=== PATIENT | female | born 1985 | race Caucasian/White ===

== ENCOUNTER 2017-09-14 05:28 | Emergency (ER) | payer SELFPAY ==
--- NOTE | 2017-09-14 05:37 | PDOC ---
History of Present Illness - General Chief Complaint: Pain, Acute Stated Complaint: ABDOMINAL PAIN; pt states that she has LLQ pain. Her menses is late. SHe started a new OCP History Source: Patient Exam Limitations: No Limitations - History of Present Illness Timing/Duration: 1-3 hours Severity: mild (Pt states that she has had this type on LLQ pain when she has a viral gastroenteritis. However pt has no N/V/D) Past History - Travel Traveled outside of the country in the last 30 days: No Close contact w/someone who was outside of country & ill: No - Past Medical History Allergies/Adverse Reactions: Allergies Allergy/AdvReac Type Severity Reaction Status Date / Time No Known Allergies Allergy Verified 09/14/17 05:30 Home Medications: Ambulatory Orders NK [No Known Home Medication] 09/14/17 Asthma: No Cancer: No Cardiac Disorders: No Diabetes: No HTN: No Seizures: No Thyroid Disease: No - Suicide/Smoking/Psychosocial Hx Smoking History: Never smoked Have you smoked in the past 12 months: No Hx Alcohol Use: No Drug/Substance Use Hx: No Hx Substance Use Treatment: No Review of Systems - Review of Systems Able to Perform ROS?: No Is the patient limited Beninese proficient: No Constitutional: No: Symptoms Reported, See HPI, Chills, Diaphoresis, Fever, Loss of Appetite, Malaise, Night Sweats, Weakness, Weight Stable, Unintentional Wgt. Loss, Unexplained wgt Loss, Other HEENTM: No: Symptoms Reported, See HPI, Eye Pain, Blurred Vision, Tearing, Recent change in vision, Double Vision, Cataracts, Ear Pain, Ocular Prothesis, Ear Discharge, Nose Pain, Nose Congestion, Tinnitus, Nose Bleeding, Hearing Loss , Throat Pain, Throat Swelling, Mouth Pain, Dental Problems, Difficulty Swallowing, Mouth Swelling, Other Respiratory: No: Symptoms reported, See HPI, Cough, Orthopnea, Shortness of Breath, SOB with Exertion, SOB at Rest, Stridor, Wheezing, Productive cough, Hemoptysis, Other Cardiac (ROS): No: Symptoms Reported, See HPI, Chest Pain, Edema, Irregular Heart Rate, Lightheadedness, Palpitations, Syncope, Chest Tightness, Other ABD/GI: Yes: Abdominal cramping. No: Symptoms Reported, See HPI, Abdominal Distended, Abd. Pain w/ defecation, Blood Streaked Bowels, Constipated, Diarrhea , Difficulty Swallowing, Nausea, Poor Appetite, Poor Fluid Intake, Rectal Bleeding, Vomiting, Indigestion, Tarry Stools, Other Musculoskeletal: No: Symptoms Reported, See HPI, Back Pain, Gout, Joint Pain, Joint Swelling, Muscle Pain, Muscle Weakness, Neck Pain, Joint Stiffness, Other Neurological: No: Symptoms reported, See HPI, Headache, Numbness, Paresthesia, Pre-Existing Deficit, Seizure, Tingling, Tremors, Weakness, Unsteady Gait, Ataxia, Dizziness, Other *Physical Exam - Physical Exam General Appearance: Yes: Nourished, Appropriately Dressed. No: Apparent Distress, Disheveled, Mild Distress, Moderate Distress, Severe Distress, Alcohol on Breath, Intoxicated, Cachetic, Obese, Thin, Other HEENT: positive: EOMI, JHON, Normal ENT Inspection, Normal Voice, Symmetrical, TMs Normal, Pharynx Normal. negative: Pale Conjunctivae, Photophobia, Scleral Icterus (R), Scleral Icterus (L), Muffled/Hoarse voice, Pharyngeal Erythema, Tonsillar Exudate, Tonsillar Erythema, Nasal Congestion, Rhinorrhea, Sinus Tenderness, Orbits, Hearing Decreased, Hearing Grossly Normal, TM Bulging, TM Dull, TM Erythema, Lesions, Fontaine, Excessive drooling, Thrush, Other Neck: positive: Trachea midline, Supple. negative: Tender, Normal Thyroid, Rigid, Carotid bruit, Decreased range of motion, Stridor, Lymphadenopathy (R), Lymphadenopathy (L), Rigidity, Tender lateral, Tender midline, Thyromegaly, Other Respiratory/Chest: positive: Lungs Clear, Normal Breath Sounds. negative: Chest Tender, Respiratory Distress, Accessory Muscle Use, Labored Respiration, Rapid RR, Decreased Breath Sounds, Paradoxal Breathing, Crackles, Rales, Rhonchi , Stridor, Wheezing, Hyperresonant, Dullness, Plerual Rub, Other Cardiovascular: positive: Regular Rhythm, Regular Rate, S1, S2. negative: Edema , JVD, Murmur, Bradycardia, Tachycardia, Diastolic Murmur, Systolic Murmur, Gallop/S3, Gallop/S4, Irregularly Irregular, Irregular, Other Gastrointestinal/Abdominal: positive: Normal Bowel Sounds, Flat, Soft. negative : Tender, Organomegaly, Pulsatile Mass, Increased Bowel Sounds, Decreased BS, Protuberent, Distended, Guarding, Rebound, Tenderness, Hernia, Mass, Hepatomegaly, Spleenomegaly, Other Musculoskeletal: positive: Normal Inspection. negative: CVA Tenderness, CVA Tenderness (R), CVA Tenderness (L), Decreased Range of Motion, Muscle Spasm, Vertebral Tenderness, Other Extremity: positive: Normal Capillary Refill, Normal Inspection, Normal Range of Motion. negative: Tender, Pelvis Stable, Coldness, Cyanosis, Delayed Capillary Refill, Pedal Edema, Swelling, Calf Tenderness, Erythema, Inflammation , Other Integumentary: positive: Normal Color, Dry, Warm. 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 negative: Abnormal Cranial NS, Respond to painful stimul, Responsive, EOM Palsy, Facial Droop, Numbness, Sensory Deficit, Finger to Nose, Confused, Disoriented, Depressed Affect, Babinski, Other ED Treatment Course - LABORATORY CBC & Chemistry Diagram: 09/14/17 06:00 09/14/17 06:00 Medical Decision Making - Medical Decision Making 09/14/17 06:26 Pt comes with LLQ pain and a late menstrual period. She may be or she may have a left ovarian cyst. She recently started a new OCP and she has been vaginal spotting all month. Pt appears comfortable, however she states that she is in pain. No guarding and no rebound, no N/V/D She will have labs and she will get pain meds and she will be treated with percocet. AM Sonogram when the dept opens. 09/14/17 06:52 CBC normal; chem pending; UA initially normal; leukocytes pending. Pt will be signed out to the day doctor. *DC/Admit/Observation/Transfer Diagnosis at time of Disposition: Ovulation pain - Discharge Dispostion Disposition: HOME Condition at time of disposition: Stable - Referrals - Patient Instructions Additional Instructions: Pain is likely due to ovulation. It should slowly subside within several days. Anti-inflammatories taken on a regular basis, such as Motrin 3 times daily or Aleve twice daily, should relieve the pain. If pain worsens, return to ER for further evaluation. 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 - Post Discharge Activity
[2017-09-14 05:44] VITALS: BP 148/90; PULSE 67; TEMP 98.5; BMI 29.9
[2017-09-14 06:34] LABS: BASO % 0.9 % (0-2.0); EOS % 5.1 % (0-4.5); HEMOGLOBIN 12.2 GM/dL (10.7-15.3); LYMPH % 33.9 % (8-40); MCH 30.7 pg (25.7-33.7); MCHC 32.9 g/dl (32.0-36.0); MEAN CELL VOLUME 93.2 fl (80-96); MEAN PLT VOLUME 9.4 fl (7.5-11.1); MONO % 6.8 % (3.8-10.2); NEUT % 53.3 % (42.8-82.8); PLATELET COUNT 334 K/MM3 (134-434); RBC 3.97 M/mm3 (3.60-5.2); RDW 13.5 % (11.6-15.6)
[2017-09-14 06:37] LABS: URINE APPEARANCE CLOUDY; URINE BILIRUBIN NEGATIVE (NEGATIVE); URINE BLOOD NEGATIVE (NEGATIVE); URINE COLOR YELLOW; URINE GLUCOSE (UA) NEGATIVE (NEGATIVE); URINE KETONE NEGATIVE (NEGATIVE); URINE NITRITE NEGATIVE (NEGATIVE); URINE PROTEIN NEGATIVE (NEGATIVE)
[2017-09-14 07:22] LABS: ALBUMIN 3.5 g/dl (3.4-5.0); ANION GAP 6 (8-16); BILIRUBIN,TOTAL 0.2 mg/dL (0.2-1.0); BLOOD UREA NITROGEN 10 mg/dL (7-18); CALCIUM 8.2 mg/dL (8.5-10.1); CHLORIDE 104 mmol/L (98-107); CO2 29 mmol/L (21-32); CREATININE 0.7 mg/dL (0.55-1.02); GLUCOSE,RANDOM 93 mg/dL (74-106); POTASSIUM 4.2 mmol/L (3.5-5.1); SGOT/AST 8 U/L (15-37); SGPT/ALT 22 U/L (12-78); SODIUM 139 mmol/L (136-145); TOT PROT 6.9 g/dl (6.4-8.2)
[2017-09-14 07:23] LABS: ALK PHOS 47 U/L (45-117)
--- NOTE | 2017-09-14 07:53 | PDOC ---
*Physical Exam - Vital Signs Last Vital Signs Temp Pulse Resp BP Pulse Ox 98.5 F 67 18 148/90 99 09/14/17 05:30 09/14/17 05:30 09/14/17 05:30 09/14/17 05:30 09/14/17 05:30 09/14/17 09:11 Ultrasound is negative. Most likely diagnosis is ovulation pain. Anti- inflammatories and [employer] referral. Return to ER if pain worsens or other symptoms develop. Fully ambulatory, pain much improved, upon discharge, to follow-up as recommended - Physical Exam Comments: 09/14/17 07:52 Patient's pain is much improved. Abdomen is nondistended, bowel sounds are normal. Soft without mass or organomegaly. Mild tenderness to deep palpation in the left pelvis, no guarding or rebound. test negative. CBC and chemistries without significant abnormalities, specifically, no white count. Impression: Patient recently started oral contraceptives, her. She has had spotting throughout her first cycle with no distinct masses. This is probably pain resulting from ovulation. Ultrasound will be performed. Maintain anti- inflammatories. [employer] follow-up. ED Treatment Course - LABORATORY CBC & Chemistry Diagram: 09/14/17 06:00 09/14/17 06:00 - ADDITIONAL ORDERS Additional order review: Laboratory Results 09/14/17 09/14/17 09/14/17 07:04 06:01 06:01 Sodium Potassium Chloride Carbon Dioxide Anion Gap BUN Creatinine Creat Clearance w eGFR Random Glucose Calcium Total Bilirubin AST ALT Alkaline Phosphatase Total Protein Albumin Beta HCG, Quant < 1.0 Urine Color Yellow Urine Appearance Cloudy Urine pH 5.0 Ur Specific Mission 1.026 Urine Protein Negative Urine Glucose (UA) Negative Urine Ketones Negative Urine Blood Negative Urine Nitrite Negative Urine Bilirubin Negative Urine Urobilinogen 2.0 H Urine HCG, Qual Negative 09/14/17 06:00 Sodium 139 Potassium 4.2 Chloride 104 Carbon Dioxide 29 Anion Gap 6 L BUN 10 Creatinine 0.7 Creat Clearance w eGFR > 60 Random Glucose 93 Calcium 8.2 L Total Bilirubin 0.2 AST 8 L ALT 22 Alkaline Phosphatase 47 Total Protein 6.9 Albumin 3.5 Beta HCG, Quant Urine Color Urine Appearance Urine pH Ur Specific Mission Urine Protein Urine Glucose (UA) Urine Ketones Urine Blood Urine Nitrite Urine Bilirubin Urine Urobilinogen Urine HCG, Qual 09/14/17 06:00 RBC 3.97 MCV 93.2 MCHC 32.9 RDW 13.5 MPV 9.4 Neutrophils % 53.3 Lymphocytes % 33.9 D Monocytes % 6.8 Eosinophils % 5.1 H Basophils % 0.9 - RADIOLOGY Radiology Studies Ordered: Category Date Time Status PELVIC / BLADDER US [US] Stat Ultrasound 09/14/17 07:34 Ordered - Medications Given in the ED: ED Medications Discontinued Medications Generic Name Dose Route Start Last Admin Trade Name Freq PRN Reason Stop Dose Admin Oxycodone/Acetaminophen 2 combo 09/14/17 05:38 09/14/17 05:59 Percocet 5/325 - PO 09/14/17 05:39 2 combo ONCE ONE Administration *DC/Admit/Observation/Transfer Diagnosis at time of Disposition: Ovulation pain - Discharge Dispostion Disposition: HOME Condition at time of disposition: Stable Admit: No - Referrals - Patient Instructions Additional Instructions: Pain is likely due to ovulation. It should slowly subside within several days. Anti-inflammatories taken on a regular basis, such as Motrin 3 times daily or Aleve twice daily, should relieve the pain. If pain worsens, return to ER for further evaluation. Otherwise see your [employer] physician for further evaluation and treatment within 3 days. - Post Discharge Activity
== END 2017-09-14 09:34 | disposition home or self-care (01) ==
LOC: FER 05:28
DX: N94.0 Mittelschmerz (principal)
CPT/HCPCS: 36415; 76856-TC; 80053; 81003; 84702; 84703; 85025; 99282-25

== ENCOUNTER 2017-12-09 14:04 | Emergency (ER) | payer OTHER ==
[2017-12-09] MEDS ORDERED: IBUPROFEN 400 MG TABLET (FP) PO ONE ×2 (14:17→15:21)
[2017-12-09 14:18] VITALS: BP 115/69; PULSE 83; TEMP 98; BMI 29.9
--- NOTE | 2017-12-09 14:18 | PDOC ---
Rapid Medical Evaluation Chief Complaint: Injury Time Seen by Provider: 12/09/17 14:15 Medical Evaluation: Allergies Allergy/AdvReac Type Severity Reaction Status Date / Time No Known Allergies Allergy Verified 12/09/17 14:14 12/09/17 14:15 The patient presents with a chief complaint of: R ankle pain. Twisted it last night on uneven pavement in parking complex. Pain with walking I have performed a brief in-person evaluation of this patient; Pertinent physical exam findings: ambulatory, but with limp, in no respiratory distress. Swollen lateral Malleoulus, decreased rom. TTP lateral/medial maleolus I have ordered the following: R ankle x-ray The patient will proceed to the ED for further evaluation.
--- NOTE | 2017-12-09 14:59 | PDOC ---
History of Present Illness - General Chief Complaint: Injury Stated Complaint: RT ANKLE PAIN Time Seen by Provider: 12/09/17 14:15 History Source: Patient Exam Limitations: No Limitations - History of Present Illness Initial Comments: 12/09/17 14:55 CHIEF COMPLAINT: Inversion injury right ankle HISTORY OF PRESENT ILLNESS: She is a 32-year-old female, denies any significant medical history currently on no medication presents with right ankle inversion injury. Reports walking on the pavement and her ankle gave out. There is swelling noted to right lateral ankle with no bruising. No deformity. Patient is ambulating guarding ankle. Occurred: reports: this morning Severity: Yes: moderate Lower Extremity Pain Location: right: ankle Method of Injury: Yes: twisted Modifying Factors: improves with: cold therapy Lower Ext. Injury Location - Specific Injury Location Ankle: right pain, right swelling Extremity Pain Location - Extremity Pain Location Extremity Pain Locations: right: ankle Past History - Past Medical History Allergies/Adverse Reactions: Allergies Allergy/AdvReac Type Severity Reaction Status Date / Time No Known Allergies Allergy Verified 12/09/17 14:18 Home Medications: Ambulatory Orders NK [No Known Home Medication] 09/14/17 Asthma: No Cancer: No Cardiac Disorders: No COPD: No Diabetes: No HTN: No Seizures: No Thyroid Disease: No - Immunization History Immunization Up to Date: Yes - Suicide/Smoking/Psychosocial Hx Smoking History: Never smoked Have you smoked in the past 12 months: No Information on smoking cessation initiated: No Hx Alcohol Use: No Drug/Substance Use Hx: No Substance Use Type: None Hx Substance Use Treatment: No Review of Systems - Review of Systems Constitutional: No: Symptoms Reported HEENTM: No: Symptoms Reported Respiratory: No: Symptoms reported Cardiac (ROS): No: Symptoms Reported Musculoskeletal: Yes: Joint Pain, Joint Swelling. No: Joint Stiffness Integumentary: Yes: Other (edema to right lateral ankle). No: Symptoms Reported , Bruising, Erythema Neurological: No: Paresthesia, Tingling, Tremors Hematologic/Lymphatic: No: Symptoms Reported All Other Systems: Reviewed and Negative *Physical Exam - Vital Signs Last Vital Signs Temp Pulse Resp BP Pulse Ox 98 F 83 16 115/69 100 12/09/17 14:15 12/09/17 14:15 12/09/17 14:15 12/09/17 14:15 12/09/17 14:15 - Physical Exam General Appearance: Yes: Appropriately Dressed. No: Apparent Distress Neck: negative: Tender lateral, Tender midline Respiratory/Chest: positive: Lungs Clear, Normal Breath Sounds. negative: Respiratory Distress, Accessory Muscle Use Extremity: positive: Normal Range of Motion (with associated pain), Tender ( tender right lateral ankle with swelling localized lateral malleolus), Swelling (lateral ankle), Inflammation. negative: Delayed Capillary Refill, Erythema Integumentary: positive: Normal Color, Dry, Swelling. negative: Erythema, Ecchymosis, Bruising Neurologic: positive: Alert, Normal Mood/Affect Medical Decision Making - Medical Decision Making 12/09/17 14:58 A/P: Patient with right ankle injury, urine sent. Patient sent x-ray Motrin for pain 12/09/17 16:18 X-ray wet wet read is negative for acute fracture or dislocation, Lance wrap and Aircast placed on ice and elevate when at rest. *DC/Admit/Observation/Transfer Diagnosis at time of Disposition: Ankle sprain Qualifiers: Encounter type: initial encounter Involved ligament of ankle: other ligament Laterality: right Qualified Code(s): S93.491A - Sprain of other ligament of right ankle, initial encounter - Discharge Dispostion Disposition: HOME Condition at time of disposition: Stable Admit: No - Referrals Referrals: Arnaud Prather MD [Staff Physician] - - Patient Instructions Printed Discharge Instructions: DI for Ankle Sprain Additional Instructions: 1. Please return to the emergency department with any redness, swelling, increased pain, or any other concerns. 2. Keep splint on for stability. 3. Please follow up in the office of within a week if pain persists. 4. No weightbearing 5. Ice and elevate when at rest. 6. Motrin for pain - Post Discharge Activity Forms/Work/School Notes: Back to Work
== END 2017-12-09 16:25 | disposition home or self-care (01) ==
LOC: JERFT 14:04
PROC: 2W3QX1Z Immobilization of Right Lower Leg using Splint (ICD-10-PCS; principal; 2017-12-09)
DX: S93.491A Sprain of other ligament of right ankle, initial encounter (principal); X50.1XXA Overexertion from prolonged static or awkward postures, initial encounter; Y93.01 Activity, walking, marching and hiking; Y92.481 Parking lot as the place of occurrence of the external cause; Y99.8 Other external cause status
CPT/HCPCS: 73610-TC-RT-FY; 73630-TC-RT-FY; 84703; 99282-25

== ENCOUNTER 2018-01-01 10:41 | Emergency (ER) | payer OTHER ==
[2018-01-01 10:47] VITALS: TEMP 98.5; BMI 30.4
--- NOTE | 2018-01-01 11:11 | PDOC ---
History of Present Illness - General Chief Complaint: Sore Throat Stated Complaint: THROAT PAIN Time Seen by Provider: 01/01/18 10:52 - History of Present Illness Initial Comments: 01/01/18 11:16 The patient is a 32 year old female 5 weeks with no significant PMH who presents for evaluation of throat pain and swelling to her left sided of her face. The patient reports that she was initially evaluated at an urgent care 5 days ago and was strep negative at that time. She reports continued symptoms prompting her to re-present to an urgent care 3 days ago and was monospot negative at that time. She continued to note worsening symptoms and difficulty sleeping due to her sore throat as well as some left ear pain prompting her presentation to the ED for evaluation. She otherwise denies fevers , chills, SOB, chest pain, nausea, vomiting, abdominal pain, or changes with urination or bowel movements. Past History - Past Medical History Allergies/Adverse Reactions: Allergies Allergy/AdvReac Type Severity Reaction Status Date / Time No Known Allergies Allergy Verified 01/01/18 10:47 Home Medications: Ambulatory Orders Amoxicillin - [Amoxicillin 875mg Tablet -] 875 mg PO BID #14 tab 01/01/18 Asthma: No Cancer: No Cardiac Disorders: No COPD: No Diabetes: No HTN: No Seizures: No Thyroid Disease: No - Immunization History Immunization Up to Date: Yes - Suicide/Smoking/Psychosocial Hx Smoking History: Never smoked Have you smoked in the past 12 months: No Hx Alcohol Use: No Drug/Substance Use Hx: No Substance Use Type: None Hx Substance Use Treatment: No Review of Systems - Review of Systems Comments:: 01/01/18 11:24 Constitutional: No fevers, chills, fatigue, malaise HEENT: Sore Throat, Left Ear Pain, Left neck swelling and pain. No Rhinorrhea, nasal congestion, visual changes Cardiovascular: No chest pain, syncope, palpitations, lightheadedness Respiratory: No Cough, SOB, Hemoptysis, Gastrointestinal: No Abdominal pain, Nausea, Vomiting, Constipation, Diarrhea, Melena Genitourinary: No Dysuria, Frequency, Urgency, Hesitancy, Hematuria, Flank pain Musculoskeletal: No Myalgia, arthralgia Skin: No rashes, itching, bruising, pallor Neurologic: No Headache, Dizziness, Numbness, Weakness, or Tingling Psychiatric: No Hallucinations. No SI or HI *Physical Exam - Vital Signs Last Vital Signs Temp Pulse Resp BP Pulse Ox 98.5 F 78 18 132/72 99 01/01/18 10:45 01/01/18 10:45 01/01/18 10:45 01/01/18 10:45 01/01/18 10:45 - Physical Exam Comments: 01/01/18 11:25 General Appearance: Nourished. No Apparent Distress HEENT: EOMI, JHON. Mild Tonsillar Erythema and Swelling, Uvula Midline, Full TM in the Left Ear. No Pharyngeal Erythema, Tonsillar Exudate, Neck: Tender Cervical Lymph node to the left submental region of the neck. Respiratory/Chest: Lungs Clear, Normal Breath Sounds. No Crackles, Rales, Rhonchi, Wheezing Cardiovascular: Regular Rhythm, Regular Rate. No Murmur, Gallops, Rubs Gastrointestinal/Abdominal: Normal Bowel Sounds, Soft. No Guarding, Rebound, Tenderness Musculoskeletal: No CVA Tenderness Extremity: Normal Capillary Refill Integumentary: Normal Color, Dry, Warm Neurologic: Fully Oriented, Alert, Normal Mood/Affect, Normal Response, ED Treatment Course - LABORATORY CBC & Chemistry Diagram: 01/01/18 11:44 01/01/18 11:44 - RADIOLOGY Radiology Studies Ordered: Category Date Time Status SOFT TISSUE NECK AND HEAD US [US] Stat Ultrasound 01/01/18 11:10 Ordered Medical Decision Making - Medical Decision Making 01/01/18 11:27 The patient is a 32 year old female 5 weeks with no significant PMH who presents for evaluation of throat pain and swelling to her left sided of her face. Differential includes but is not limited to: Abscess, Otitis Media, Pharyngitis, Infectious, Metabolic Derangement. Given the patient's continued symptoms, we will obtain a cbc, cmp, and US of the neck to evaluate further for possible etiologies. We will continue to monitor and reassess in the meantime. 01/01/18 12:41 CBC, cmp are unremarkable. US demonstrates a unremarkable lymph node as read by our radiologist. We are comfortable discharging the patient home at this time with ENT follow up on amoxicillin. We discussed the results, plan, and return precautions with the patient who voiced understanding and is agreeable with the plan. *DC/Admit/Observation/Transfer Diagnosis at time of Disposition: Otitis media Qualifiers: Otitis media type: unspecified Laterality: left Qualified Code(s): H66.92 - Otitis media, unspecified, left ear - Discharge Dispostion Disposition: HOME Condition at time of disposition: Good Admit: No - Prescriptions Prescriptions: Amoxicillin - [Amoxicillin 875mg Tablet -] 875 mg PO BID #14 tab - Referrals Referrals: Shaun Palma MD [Staff Physician] - - Patient Instructions Printed Discharge Instructions: Middle Ear Infection Additional Instructions: Please return to the ER if you experience concerning or worsening symptoms including worsening pain, fevers, or difficulty breathing. Your lab results were normal here in the ER. We have sent a prescription for antibiotics to your pharmacy that you should take as directed. Please call to schedule a follow up appointment with our ENT specialist Dr. Palma within 2-3 days to discuss your ER visit and further management of your symptoms. - Post Discharge Activity Forms/Work/School Notes: Back to Work
--- NOTE | 2018-01-01 11:12 | PDOC ---
Attending Attestation - HPI HPI: 01/01/18 13:04 The Patient is a 32 year old female who is 5 wks , with no known PMH presents to the emergency department complaining of throat pain since 3 days ago. The patient reports her left jaw feels swollen and sore and when swallowing she has ear pain.The patient reports waking up every 3 hours due to pain, and takes Tylenol with mild relief. The patient reports seeing her PMD and going to urgent care twice 3 days ago and yesterday for the same sxs. She was tested for strep, MONO, and the Zika virus (recent travel to [place] 3 weeks ago), which were negative. The patient reports going to the urgent care and Tuesday, they suggested she drinks a lot of fluids, rest and take Tylenol for the pain. The patient reports going to her PCP Last Tuesday (2017) and having her ears flushed, after leaving the office she still felt water was in her ears. The patient reports associated symptoms of chills and feeling tired. Denies fevers, difficulty swallowing or breathing, CP, SOB. Denies abd pain/cramping, vaginal bleeding/DC, LE edema, headaches, weakness, numbness, dizziness. Allergies: NKDA Social History: Denies any history of smoking, alcohol use or recreational drug use. Meds: None reported - Physicial Exam PE: 01/01/18 13:05 GENERAL: Awake, alert, and fully oriented, in no acute distress HEAD: No signs of trauma EYES: PERRLA, EOMI, sclera anicteric, conjunctiva clear ENT: L neck/inferior jaw with mild edema with palpable 1.5cm tender cervical lymph node. L TM cloudy with mild fullness, no perf. Mild erythema in the canal. Hearing grossly normal, nares patent, oropharynx with 1+ tonsillar swelling without exudates or erythema. Uvula midline. Moist mucosa. No hoarseness. NECK: Normal ROM, supple, no lymphadenopathy, JVD, or masses LUNGS: Breath sounds equal, clear to auscultation bilaterally. No wheezes, and no crackles HEART: Regular rate and rhythm, normal S1 and S2, no murmurs, rubs or gallops ABDOMEN: Soft, nontender, normoactive bowel sounds. No guarding, no rebound. No masses EXTREMITIES: Normal range of motion, no edema. No clubbing or cyanosis. No cords, erythema, or tenderness BACK: No midline spinal tenderness in cervical/thoracic/lumbar region NEUROLOGICAL: Normal speech, normal strength and sensation throughout. SKIN: Warm, Dry, normal turgor, no rashes or lesions noted. - Medical Decision Making 01/01/18 13:05 Documentation prepared by Racheal Robertson, acting as medical editor for Roxann Kearney MD. <Racheal Robertson - Last Filed: 01/01/18 13:04> - Resident Resident Name: Fili Tenorioel - ED Attending Attestation I have performed the following: I have examined & evaluated the patient, The case was reviewed & discussed with the resident, I agree w/resident's findings & plan, Exceptions are as noted - Medical Decision Making 01/01/18 13:58 32yo F currently 5 weeks presents to the ED with sore throat and L neck /lower facial swelling. Vitals wnl. Exam with L ear otitis, and palpable, tender , mobile 1.5cm cervical lymph node, likely reactive to otitis media. US consistent with lymph node. Will treat otitis with amox. Discussed with patient that the lymph node needs to be followed to ensure it resolves and is not cancerous. Pt expressed understanding. Recommended to pt to take tylenol as needed for pain. Pt given referral for ENT f/u. I discussed the physical exam findings, ancillary test results and final diagnoses with the patient. I answered all of the patient's questions. The patient was satisfied with the care received and felt comfortable with the discharge plan and treatment plan. The patient will call their primary care physician within 24 hours to arrange follow-up and will return to the Emergency Department with any new, persistent or worsening symptoms. <Roxann Kearney - Last Filed: 01/01/18 14:06>
[2018-01-01] MEDS ORDERED: ACETAMINOPHEN 1000 MG/100 ML VIAL (NON FORMULARY) IVPB ONE (11:29)
[2018-01-01 11:55] LABS: BASO % 0.7 % (0-2.0); HEMATOCRIT 36.3 % (32.4-45.2); HEMOGLOBIN 12.1 GM/dL (10.7-15.3); LYMPH % 13.5 % (8-40); MCH 31.1 pg (25.7-33.7); MCHC 33.3 g/dl (32.0-36.0); MEAN CELL VOLUME 93.5 fl (80-96); MEAN PLT VOLUME 8.6 fl (7.5-11.1); NEUT % 77.8 % (42.8-82.8); PLATELET COUNT 282 K/MM3 (134-434); RBC 3.88 M/mm3 (3.60-5.2); RDW 13.4 % (11.6-15.6); WHITE BLOOD COUNT 9.2 K/mm3 (4.0-10.0)
[2018-01-01] MEDS ORDERED: ACETAMINOPHEN INJECTION 100 ML IVPB ONE (12:06)
[2018-01-01 12:18] LABS: ALBUMIN 3.8 g/dl (3.4-5.0); ANION GAP 8 (8-16); BLOOD UREA NITROGEN 6 mg/dL (7-18); CALCIUM 8.7 mg/dL (8.5-10.1); CHLORIDE 105 mmol/L (98-107); CO2 26 mmol/L (21-32); CREATININE 0.7 mg/dL (0.55-1.02); GLUCOSE,RANDOM 98 mg/dL (74-106); POTASSIUM 4.1 mmol/L (3.5-5.1); SGOT/AST 10 U/L (15-37); SGPT/ALT 13 U/L (12-78); SODIUM 139 mmol/L (136-145)
[2018-01-01 12:20] LABS: ALK PHOS 47 U/L (45-117); BILIRUBIN,TOTAL 0.3 mg/dL (0.2-1.0); TOT PROT 7.3 g/dl (6.4-8.2)
[2018-01-01 13:07] VITALS: BP 129/66; PULSE 75
== END 2018-01-01 13:07 | disposition home or self-care (01) ==
LOC: JER 10:41
PROC: 3E033NZ Introduction of Analgesics, Hypnotics, Sedatives into Peripheral Vein, Percutaneous Approach (ICD-10-PCS; principal; 2018-01-01)
DX: O99.89 Other specified diseases and conditions complicating pregnancy, childbirth and the puerperium (principal); H66.92 Otitis media, unspecified, left ear; Z3A.01 Less than 8 weeks gestation of pregnancy
CPT/HCPCS: 36415; 76536-TC; 80053; 85025; 99282-25; J0131

== ENCOUNTER 2018-01-01 20:20 | Emergency (ER) | payer OTHER ==
[2018-01-01 20:29] VITALS: BP 128/72; PULSE 102; TEMP 98.4; BMI 29.5
[2018-01-01] MEDS ORDERED: DEXAMETHASONE SOD PHOSPHATE 10 MG/1 ML VIAL IVPUSH ONE (22:47)
[2018-01-01] MEDS ORDERED: DEXAMETHASONE SOD PHOSPHATE 10 MG/1 ML VIAL ONE (23:03)
--- NOTE | 2018-01-01 23:38 | PDOC ---
History of Present Illness - General History Source: Patient Exam Limitations: No Limitations - History of Present Illness Initial Comments: 01/01/18 23:41 The patient is a 32 year old female, 5 weeks , with no known PMH wo presents to the emergency department complaining of throat and ear pain that began three days ago. The patient states she is unable to lay down secondary to her ear pain. The patient was seen twice at an urgent care and earlier today in this ER by Dr. Kearney. The head/neck US from earlier showed a reactive lymph node on the left side of the neck and ear infection. The patient was sent home on amoxicillin. Patient came back to the ER requesting pain meds. The patient denies fevers, difficulty swallowing or breathing, CP, SOB. Denies abd pain/cramping, vaginal bleeding/DC, LE edema, headaches, weakness, numbness , dizziness. Allergies: NKDA Social History: Denies any history of smoking, alcohol use or recreational drug use. Meds: None reported <Amy Craft - Last Filed: 01/01/18 23:42> <Joi Cornell - Last Filed: 01/02/18 00:31> - General Chief Complaint: Vaginal Bleeding Stated Complaint: FACIAL PAIN/5 WKS Time Seen by Provider: 01/01/18 22:30 Past History <Amy Craft - Last Filed: 01/01/18 23:42> - Past Medical History Asthma: No Cancer: No Cardiac Disorders: No COPD: No Diabetes: No HTN: No Seizures: No Thyroid Disease: No - Immunization History Immunization Up to Date: Yes - Suicide/Smoking/Psychosocial Hx Smoking History: Never smoked Have you smoked in the past 12 months: No Information on smoking cessation initiated: No Hx Alcohol Use: No Drug/Substance Use Hx: No Substance Use Type: None Hx Substance Use Treatment: No <Joi Cornell - Last Filed: 01/02/18 00:31> - Past Medical History Allergies/Adverse Reactions: Allergies Allergy/AdvReac Type Severity Reaction Status Date / Time No Known Allergies Allergy Verified 01/01/18 10:47 Home Medications: Ambulatory Orders Amoxicillin - [Amoxicillin 875mg Tablet -] 875 mg PO BID #14 tab 01/01/18 Ciprofloxacin HCl/Dexameth [Ciprodex Otic Suspension] 4 drop BID #1 bottle Review of Systems - Review of Systems Able to Perform ROS?: Yes Comments:: 01/01/18 23:41 A complete review of 10 out of 10 review of systems is taken and is negative apart from what is previously mentioned below and in the HPI. <Amy Craft - Last Filed: 01/01/18 23:42> *Physical Exam - Vital Signs Last Vital Signs Temp Pulse Resp BP Pulse Ox 98.4 F 102 H 20 128/72 97 01/01/18 20:26 01/01/18 20:26 01/01/18 20:26 01/01/18 20:26 01/01/18 20:26 - Physical Exam Comments: 01/01/18 23:41 GENERAL: Awake, alert, and fully oriented, in no acute distress HEAD: No signs of trauma EYES: PERRLA, EOMI, sclera anicteric, conjunctiva clear ENT: (+) Left neck with mild edema and palpable 1.5cm tender cervical lymph node. (+) Left tympanic membrane is swollen and erythematous. Hearing normal, nares patent, oropharynx with 1+ tonsillar swelling without exudates or erythema. Uvula midline. Moist mucosa. No hoarseness; speaking in full sentences. No dental pain. Handling own secretions. No submandibular or sublingual swelling. NECK: Normal ROM, supple, no lymphadenopathy, JVD, or masses LUNGS: Breath sounds equal, clear to auscultation bilaterally. No wheezes, and no crackles HEART: Regular rate and rhythm, normal S1 and S2, no murmurs, rubs or gallops ABDOMEN: Soft, nontender, normoactive bowel sounds. No guarding, no rebound. No masses EXTREMITIES: Normal range of motion, no edema. No clubbing or cyanosis. No cords, erythema, or tenderness BACK: No midline spinal tenderness in cervical/thoracic/lumbar region NEUROLOGICAL: Normal speech, normal strength and sensation throughout. SKIN: Warm, Dry, normal turgor, no rashes or lesions noted. <Amy Craft - Last Filed: 01/01/18 23:42> - Vital Signs Last Vital Signs Temp Pulse Resp BP Pulse Ox 98.4 F 102 H 20 128/72 97 01/01/18 20:26 01/01/18 20:26 01/01/18 20:26 01/01/18 20:26 01/01/18 20:26 <Joi Cornell - Last Filed: 01/02/18 00:31> ED Treatment Course - ADDITIONAL ORDERS Additional order review: 01/01/18 22:56 Group A Strep Rapid Antigen - Final Throat - Medications Given in the ED: ED Medications Discontinued Medications Generic Name Dose Route Start Last Admin Trade Name Freq PRN Reason Stop Dose Admin Dexamethasone Sodium Phosphate 10 mg 01/01/18 22:47 01/01/18 23:05 Decadron Injection - IVPUSH 01/01/18 22:48 10 mg ONCE ONE Administration <Amy Craft - Last Filed: 01/01/18 23:42> - ADDITIONAL ORDERS Additional order review: 01/01/18 22:56 Group A Strep Rapid Antigen - Final Throat - Medications Given in the ED: ED Medications Discontinued Medications Generic Name Dose Route Start Last Admin Trade Name Freq PRN Reason Stop Dose Admin Dexamethasone Sodium Phosphate 10 mg 01/01/18 22:47 01/01/18 23:05 Decadron Injection - IVPUSH 01/01/18 22:48 10 mg ONCE ONE Administration <Joi Cornell - Last Filed: 01/02/18 00:31> *DC/Admit/Observation/Transfer - Attestations Scribe Attestion: 01/01/18 23:41 Documentation prepared by Amy Craft, acting as medical officer psychiatry for Joi Cornell MD. <Amy Craft - Last Filed: 01/01/18 23:42> <Joi Cornell - Last Filed: 01/02/18 00:31> Diagnosis at time of Disposition: Otitis media Qualifiers: Otitis media type: other nonsuppurative Chronicity: acute Laterality: left Recurrence: not specified as recurrent Qualified Code(s): H65.192 - Other acute nonsuppurative otitis media, left ear - Discharge Dispostion Disposition: HOME Condition at time of disposition: Stable - Prescriptions Prescriptions: Ciprofloxacin HCl/Dexameth [Ciprodex Otic Suspension] 4 drop BID #1 bottle - Referrals Referrals: Shaun Palma MD [Staff Physician] - - Patient Instructions Printed Discharge Instructions: DI for Otitis Media (Middle Ear Infection)- Child Additional Instructions: 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
[2018-01-02] MEDS ORDERED: ACETAMINOPHEN WITH CODEINE 300MG/30MG TABLET ONE (00:06)
[2018-01-02] MEDS ORDERED: CIPROFLOXACIN HCL 0.3% OPHTH 2.5ML BOTTLE ONE (00:06)
[2018-01-02] MEDS ORDERED: ACETAMINOPHEN WITH CODEINE 300MG/30MG TABLET PO ONE (00:19)
[2018-01-02] MEDS ORDERED: CIPROFLOXACIN 0.3% EYE DROPS 5 ML BOTTLE OU STA (00:21)
[2018-01-02] MEDS ORDERED: ACETAMINOPHEN INJECTION 100 ML IVPB ONE (00:33)
[2018-01-02] MEDS ORDERED: ACETAMINOPHEN 1000 MG/100 ML VIAL (NON FORMULARY) IVPB ONE (00:36)
== END 2018-01-02 00:50 | disposition home or self-care (01) ==
LOC: JER 20:20
PROC: 3E033NZ Introduction of Analgesics, Hypnotics, Sedatives into Peripheral Vein, Percutaneous Approach (ICD-10-PCS; principal; 2018-01-01)
PROC: 3E0333Z Introduction of Anti-inflammatory into Peripheral Vein, Percutaneous Approach (ICD-10-PCS; 2018-01-01)
DX: H65.192 Other acute nonsuppurative otitis media, left ear (principal); R59.0 Localized enlarged lymph nodes; Z3A.01 Less than 8 weeks gestation of pregnancy
CPT/HCPCS: 87070; 87430; 99282-25; J0131; J1100

== ENCOUNTER 2018-08-25 12:25 | Inpatient (IN) | payer OTHER ==
[2018-08-25] MEDS ORDERED: AMPICILLIN SODIUM 2 GM VIAL ONE (13:10)
[2018-08-25] MEDS ORDERED: NALOXONE HCL 0.4 MG/ML VIAL IVPUSH PRN (13:22)
[2018-08-25] MEDS ORDERED: BUPIVACAINE HCL/PF 0.25% (2.5MG/ML) 10 ML VIAL ONE (13:27)
[2018-08-25] MEDS ORDERED: LIDO 2%/EPI 1:200000 PRESRVFRE (20 ML SDVIAL) ONE (13:28)
[2018-08-25] MEDS ORDERED: FENTANYL/BUPIVACAINE/NS/PF - PCEA - 50 ML DISP.SYRIN EP SCH (13:30)
[2018-08-25] MEDS ORDERED: AMPICILLIN - 2 GM in SODIUM CHLORIDE 100 ML IVPB ONE (13:45)
[2018-08-25 13:51] VITALS: BMI 33.7
[2018-08-25 13:51] LABS: BASO % 0.4 % (0-2.0); EOS % 0.6 % (0-4.5); HEMATOCRIT 32.2 % (32.4-45.2); HEMOGLOBIN 10.8 GM/dL (10.7-15.3); LYMPH % 12.4 % (8-40); MCHC 33.6 g/dl (32.0-36.0); MEAN CELL VOLUME 89.2 fl (80-96); MEAN PLT VOLUME 9.3 fl (7.5-11.1); MONO % 6.1 % (3.8-10.2); NEUT % 80.5 % (42.8-82.8); PLATELET COUNT 314 K/MM3 (134-434); RBC 3.61 M/mm3 (3.60-5.2); RDW 14.8 % (11.6-15.6); WHITE BLOOD COUNT 12.8 K/mm3 (4.0-10.0)
[2018-08-25] MEDS ORDERED: OXYTOCIN 20 UNITS in 0.9% NS 20 UNIT/1,000 ML INFUS.BAG IV ONE (13:53)
[2018-08-25 14:11] LABS: INR 0.97 (0.83-1.09); PROTHROMBIN TIME (PATIENT) 11.5 SEC (9.7-13.0)
[2018-08-25 14:43] LABS: ANION GAP 13 MMOL/L (8-16); BLOOD UREA NITROGEN 8 mg/dL (7-18); CALCIUM 8.5 mg/dL (8.5-10.1); CHLORIDE 102 mmol/L (98-107); CO2 21 mmol/L (21-32); CREATININE 0.6 mg/dL (0.55-1.3); GLUCOSE,RANDOM 105 mg/dL (74-106); POTASSIUM 3.5 mmol/L (3.5-5.1); SODIUM 136 mmol/L (136-145)
[2018-08-25] MEDS ORDERED: LIDOCAINE HCL 1% PRESERVATIVE FREE - 30ML VIAL ONE (15:07)
[2018-08-25] MEDS ORDERED: DEXTROSE 5%-LACTATED RINGERS 1,000 ML IV SCH (15:30)
[2018-08-25] MEDS ORDERED: SIMETHICONE 80 MG TAB.CHEW (FP) PO PRN (15:32)
[2018-08-25] MEDS ORDERED: BENZOCAINE 28 GM HEMORRHOIDAL OINTMENT TP PRN (15:32)
[2018-08-25] MEDS ORDERED: METHYLERGONOVINE MALEATE 0.2 MG/1 ML AMP IM PRN (15:32)
[2018-08-25] MEDS ORDERED: WITCH HAZEL 50% (TUCKS) 40 PAD/JAR PAD TP PRN (15:32)
[2018-08-25] MEDS ORDERED: SENNOSIDES/DOCUSATE COMBO (SENNA PLUS) TABLET (UD) PO PRN (15:32)
[2018-08-25] MEDS ORDERED: BENZOCAINE 20% 57 GM BOTTLE TP PRN (15:32)
[2018-08-25] MEDS ORDERED: IBUPROFEN 800 MG/8 ML IJ IVPB PRN (15:32)
[2018-08-25] MEDS: oxyCODONE HCL 5 MG TABLET PO PRN ×2 (15:35→20:13)
[2018-08-25] MEDS: IBUPROFEN 600 MG TABLET (FP) PO PRN ×2 (15:35→20:14)
--- NOTE | 2018-08-25 15:41 | HP ---
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: Alzheimer's, CVA, Dementia, Migraine, Multiple Sclerosis, Peripheral Neuropathy, Parkinson's, Seizure, Syncope, TIA, Vertigo, Other Pulmonary: No: Asthma, Bronchitis, Cancer, COPD, O2 Dependent, Pneumonia, Previously Intubated, Pulmonary Embolus, Pulmonary Fibrosis, Sleep Apnea, Other Gastrointestinal: No: Ascites, Cancer, Constipation, Crohn's Disease, Diverticulitis, Diverticulosis, Esophageal Varices, Gastritis, GERD, GI Bleed, Hemorrhoids, Hiatal Hernia, Inflamatory Bowel Disease, Irritable Bowel Disease, Pancreatitis, Peptic Ulcer Disease, Ulcerative Colitis, Other Hepatobiliary: No: Cirrhosis, Cholelithiasis, Cholecystitis, Choledocholithiasis , Hepatitis A, Hepatitis B, Hepatitis C, Other Renal/: Yes: UTI. No: Renal Failure, Renal Inusuff, BPH, Cancer, Hematuria, Hemodialysis, Neurogenic Bladder, Renal Calculi, Other Reproductive: No: Ectopic , Endometriosis, Fibroids, PID, Polycystic Ovary Syndrome, Postmenopausal, Other ...: 2 ...Para: 1 () ...Term: 1 ...: 0 ...Spon : 0 ...Induced : 0 ...Multiple Gestation: 0 ...LMP: 11/21/17 ... Weeks Gestation by Dates: 39.4 ...EDC by Dates: 08/28/18 ...EDC by Sono: 08/31/18 Heme/Onc: No: Anemia, B12 Deficiency, Bleeding Disorder, Cancer, Current Chemotherapy, Current Radiation Therapy, Hemochromatosis, Hypercoaguable State, Myeloproliferative Synd, Sickle Cell Disease, Sickle Cell Trait, Thrombocytopenia, Other Infectious Disease: No: AIDS, C-Diff, Herpes Zoster, HIV, MRSA, STD's, Tuberculosis, VREF, Other Psych: No: Addictions, Anxiety, Bipolar, Depression, Panic, Psychosis, Schizophrenia, Other Musculoskeletal: No: Bursitis, Chronic low back pain, Hemiparesis, Hemiplegia, Osteoarthritis, Paraplegia, Other Rheumatology: No: Fibromyalgia, Gout, Lupus, Rheumatoid Arthritis, Sarcoidosis, Vasculitis, Other ENT: No: Allergic Rhinitis, Sinusitis, Other Endocrine: No: Tripp's Disease, Vladislav's Disease, Diabetes Insipidus, Diabetes Mellitus, Hyperparathyroidism, Hyperthyroidism, Hypothyroidism, Osteopenia, SIADH, Other Dermatology: No: Basal Cell, Cellulitis, Eczema, Melanoma, Psoriasis, Squamous Cell, Other - Past Surgical History Past Surgical History: Yes: None Hx Myomectomy: No Hx Transabdominal Cerclage: No - Smoking History Smoking history: Never smoked Have you smoked in the past 12 months: No - Alcohol/Substance Use Hx Alcohol Use: No History of Substance Use: reports: None - Social History Usual Living Arrangement: Yes: With Spouse, With Child ADL: Independent History of Recent Travel: No Home Medications - Allergies Allergies/Adverse Reactions: Allergies Allergy/AdvReac Type Severity Reaction Status Date / Time No Known Allergies Allergy Verified 08/15/18 17:50 - Home Medications Home Medications: Ambulatory Orders Pnv No.95/Ferrous Fum/Folic AC [ Vitamin Tablet] 1 each PO DAILY Family Disease History - Family Disease History Family History: Unremarkable Review of Systems - Review of Systems Constitutional: reports: Other (Active labor) Eyes: reports: No Symptoms HENT: reports: No Symptoms Neck: reports: No Symptoms Cardiovascular: reports: No Symptoms Respiratory: reports: No Symptoms Gastrointestinal: reports: No Symptoms Genitourinary: reports: No Symptoms Breasts: reports: No Symptoms Reported Musculoskeletal: reports: No Symptoms Integumentary: reports: No Symptoms Neurological: reports: No Symptoms Endocrine: reports: No Symptoms Hematology/Lymphatic: reports: No Symptoms Psychiatric: reports: No Symptoms Pain Intensity: 10 Physical Exam - Maternity Vital Signs: Vital Signs Temperature 77 F L 08/25/18 12:25 Pulse Rate 87 08/25/18 14:05 Respiratory Rate 20 08/25/18 14:05 Blood Pressure 118/56 L 08/25/18 14:05 O2 Sat by Pulse Oximetry (%) 98 08/25/18 14:05 Constitutional: Yes: Well Nourished, No Distress, Calm Eyes: Yes: WNL, Conjunctiva Clear HENT: Yes: WNL, Atraumatic, Normocephalic Neck: Yes: WNL, Supple, Trachea Midline Cardiovascular: Yes: WNL, Regular Rate and Rhythm Lungs: Clear to auscultation, Normal air movement - Abdominal Exam/OB Fundal Height: 39 Number of Fetuses: Single Presentation: Vertex Contractions: Yes Regularity: Regular Intensity: Mod/Strong Monitor Mode: External Heart Rate (range): 120 Heart Rate Location: Midline Category: I Accelerations: Non-Uniform Decelerations: None - Vaginal Exam/OB Vaginal Bleediing: No Speculum Exam: No Dilatation (cm): 10 Effacement (%): 100 Amniotic Membrane Status: Ruptured Nitrazine Test: Positive Amniotic Fluid: Yes: Clear Presentation: Vertex/Position - Physical Exam Musculoskeletal: Yes: WNL Extremities: Yes: WNL Edema: Yes Edema: LLE: Trace, RLE: Trace Integumentary: Yes: WNL Deep Tendon Reflex Grade: Normal +2 ...Motor Strength: WNL Psychiatric: Yes: WNL, Alert, Oriented - Labs Lab Results: CBC, BMP 08/25/18 13:25 08/25/18 13:25 Hemorrhage Risk Assessment - Risk Factors Medium Risk Factors: Yes: None High Risk Factors: Yes: None Risk Score: 1 Risk Level: Medium Risk Assessment/Plan 33yo P1 with at EGA 39w1d admitted in spontaneous active labor. Pt requested epidurel and it was placed. The pt quickly progreessed to 2nd stage by the time epidural was inserted. She pushed and had over 2nd degree perineal laceraton.
[2018-08-25 15:47] LABS: VENOUS PC02 37.3 mmHg (38-52); VENOUS PH 7.39 (7.32-7.42); VENOUS PO2 30.8 mmHg (28-48)
[2018-08-25 15:51] LABS: ARTERIAL BLD GAS O2 SATURATION 70.6 % (90-98.9); ARTERIAL BLOOD GAS PCO2 39.4 mmHg (35-45); ARTERIAL BLOOD GAS PO2 34.6 mmHg (80-100); ARTERIAL BLOOD GAS pH 7.37 (7.35-7.45)
--- NOTE | 2018-08-25 15:59 | PN ---
Delivery - Delivery Vaginal Delivery: No Problems, Spontaneous Type of Anesthesia: Epidural Episiotomy/Laceration: Perineal Extension/lac, 2nd degree EBL (cc): 300 Delivery, Single - Stages of Labor Date 1st Stage Initiatied: 08/25/18 Time 1st Stage Initiated: 11:00 Date 2nd Stage Initiated: 08/25/18 Time 2nd Stage Initiated: 13:50 Date of Delivery: 08/25/18 Time of Delivery: 15:09 Date Placenta Delivered: 08/25/18 Time Placenta Delivered: 15:11 Placenta: Yes: Spontaneous, Normal Configuration - Condition of Manager Commercial/Automatic Mold Sander Present: No Gender: Female Position: OP Total Hours ROM (Hrs/Mins): 2HRS 26MIN - 1 Minute Total Score: 9 5 Minutes Total Score: 9 - Feeding Plan Initial Plan: Elected not to breastfeed exclusively throughout hospitalization Benefits of Exclusively reinforced: Yes Remarks - Remarks Remarks: w/o complications
[2018-08-25] MEDS ORDERED: ELECTROLYTE-148 SOLN 1,000 ML IV SCH (16:00)
[2018-08-25] MEDS ORDERED: OXYTOCIN 20 UNITS in 0.9% NS 20 UNIT/1,000 ML INFUS.BAG IV SCH (16:15)
[2018-08-25] MEDS: AMPICILLIN - 1 GM in SODIUM CHLORIDE 100 ML IVPB SCH ×2 (17:14→18:08)
[2018-08-25] MEDS ORDERED: TUBERCULIN PPD 5 TU/0.1ML SYRINGE (IN PATIENT USE ONLY) ID ONE (17:30)
[2018-08-26] MEDS: IBUPROFEN 600 MG TABLET (FP) PO PRN ×3 (04:22→21:04)
[2018-08-26] MEDS: oxyCODONE HCL 5 MG TABLET PO PRN ×4 (04:22→21:03)
[2018-08-26 07:27] LABS: BASO % 0.6 % (0-2.0); EOS % 1.9 % (0-4.5); HEMATOCRIT 30.9 % (32.4-45.2); HEMOGLOBIN 9.9 GM/dL (10.7-15.3); LYMPH % 18.5 % (8-40); MCH 28.5 pg (25.7-33.7); MCHC 31.9 g/dl (32.0-36.0); MEAN CELL VOLUME 89.4 fl (80-96); MEAN PLT VOLUME 9.1 fl (7.5-11.1); MONO % 6.6 % (3.8-10.2); NEUT % 72.4 % (42.8-82.8); PLATELET COUNT 250 K/MM3 (134-434); RBC 3.46 M/mm3 (3.60-5.2); WHITE BLOOD COUNT 12.7 K/mm3 (4.0-10.0)
--- NOTE | 2018-08-26 09:36 | PN ---
Progress Note (short form) - Note Progress Note: ppd1 doing well, no c/o CBC, BMP 08/26/18 06:45 08/25/18 13:25 Last Vital Signs Temp Pulse Resp BP Pulse Ox 98.6 F 83 18 118/64 100 08/26/18 06:00 08/26/18 06:00 08/26/18 06:00 08/26/18 06:00 08/25/18 16:15 abdomen soft, no distension, no cva uterus firm, non tender lochia mild no calf tenderness plan ambulate , plan for d/c home in am
[2018-08-26] MEDS: PRENATAL VITAMINS W/ FOLIC ACID TABLET (FP) PO SCH (10:52)
[2018-08-26] MEDS ORDERED: BISACODYL 10 MG SUPP.RECT RC PRN (15:32)
[2018-08-27] MEDS: IBUPROFEN 600 MG TABLET (FP) PO PRN (08:01)
[2018-08-27] MEDS: oxyCODONE HCL 5 MG TABLET PO PRN (08:02)
[2018-08-27 09:13] VITALS: BP 124/62; PULSE 88; TEMP 98
[2018-08-27] MEDS: PRENATAL VITAMINS W/ FOLIC ACID TABLET (FP) PO SCH (10:33)
--- NOTE | 2018-08-27 11:18 | DS ---
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 Signs: Vital Signs Temperature 98 F 08/27/18 09:10 Pulse Rate 88 08/27/18 09:10 Respiratory Rate 20 08/27/18 09:10 Blood Pressure 124/62 08/27/18 09:10 O2 Sat by Pulse Oximetry (%) 100 08/25/18 16:15 Constitutional: Yes: Well Nourished, No Distress, Calm Eyes: Yes: WNL, Conjunctiva Clear, EOM Intact HENT: Yes: WNL, Atraumatic, Normocephalic Neck: Yes: WNL, Supple, Trachea Midline Cardiovascular: Yes: WNL, Regular Rate and Rhythm Respiratory: Yes: WNL, Regular, CTA Bilaterally Gastrointestinal: Yes: WNL ...Rectal Exam: Yes: WNL Renal/: Yes: WNL ....Post : Yes: Uterus firm, Uterus non-tender, Slight lochia rubra Breast(s): Yes: WNL Musculoskeletal: Yes: WNL Extremities: Yes: WNL Integumentary: Yes: WNL Neurological: Yes: WNL, Alert, Oriented ...Motor Strength: WNL Psychiatric: Yes: WNL, Alert, Oriented Labs: CBC, BMP 08/26/18 06:45 08/25/18 13:25 Delivery - Delivery Vaginal Delivery: No Problems, Spontaneous Type of Anesthesia: Epidural Episiotomy/Laceration: Perineal Extension/lac, 2nd degree EBL (cc): 300 Delivery, Single - Stages of Labor Date 1st Stage Initiatied: 08/25/18 Time 1st Stage Initiated: 11:00 Date 2nd Stage Initiated: 08/25/18 Time 2nd Stage Initiated: 13:50 Date of Delivery: 08/25/18 Time of Delivery: 15:09 Time Placenta Delivered: 15:11 Placenta: Yes: Spontaneous, Normal Configuration - Condition of Infant Ceramic Engineer/Turner In Present: No Gender: Female Weight: 7 lb 7 oz Position: OP Total Hours ROM (Hrs/Mins): 2HRS 26MIN - 1 Minute Total Score: 9 5 Minutes Total Score: 9 - [place] Feeding Plan Initial Plan: Elected not to breastfeed exclusively throughout hospitalization Benefits of Exclusively reinforced: Yes Discharge Summary Reason For Visit: LABOR ADMISSION Procedures: Principal: Condition: Good - Instructions Diet, Activity, Other Instructions: regular diet, no intercourse, follow up office 4 week, if heavy vaginal bleeding ,fever, pian, call MD Referrals: Navneet Amin MD [Staff Physician] - Disposition: HOME - Home Medications Comprehensive Discharge Medication List: Ambulatory Orders Pnv No.95/Ferrous Fum/Folic AC [ Vitamin Tablet] 1 each PO DAILY Ibuprofen [Motrin -] 600 mg PO QID #28 tablet 08/26/18
== END 2018-08-27 13:50 | disposition home or self-care (01) | DRG 807 ==
LOC: JLDR 12:25 → J3W 17:30
PROVIDERS: ADMIT Obstetrics & Gynecology; ATTEND Obstetrics & Gynecology
PROC: 10E0XZZ Delivery of Products of Conception, External Approach (ICD-10-PCS; principal; 2018-08-25)
PROC: 0KQM0ZZ Repair Perineum Muscle, Open Approach (ICD-10-PCS; 2018-08-25)
DX: O70.1 Second degree perineal laceration during delivery (principal); Z37.0 Single live birth; Z3A.39 39 weeks gestation of pregnancy
CPT/HCPCS: 36415; 36600; 80048; 82803; 85025; 85610; 85730; 86593; 86850; 86900; 86901

== ENCOUNTER 2018-09-12 01:21 | Emergency (ER) | payer OTHER ==
[2018-09-12] MEDS ORDERED: methylPREDNISolone NA SUCC 125 MG/2 ML VIAL IVPB ONE (01:38)
[2018-09-12] MEDS ORDERED: FAMOTIDINE 20 MG/50 ML IVPB 20 MG/50 ML MG IVPB ONE (01:38)
[2018-09-12] MEDS ORDERED: SODIUM CHLORIDE 0.9% 500 ML INFUS.BAG IV ONE (01:38)
[2018-09-12 01:51] VITALS: TEMP 98; BMI 30.9
--- NOTE | 2018-09-12 01:53 | PDOC ---
History of Present Illness - General Chief Complaint: Allergic Reaction Stated Complaint: ALLERGIC RX Time Seen by Provider: 09/12/18 01:33 - History of Present Illness Initial Comments: 09/12/18 01:53 33 yo F with no significant pmh who p/w widespread rash, and SOB. Patient reports acute onset of widespread, pruitic rash 1 hour [employer]. Also endorses SOB, and lightheadedness, with absent LOC. Denies h/o similar symptoms or presentation. Reports eating cheese, tomatoes, and champagne 2-3 hours [employer]. Otherwise within normal state of health today. Patient reports taking one Ibuprofen tablet today for left nipple pain. Denies h/o anaphylaxis, or allergic reactions. Patient denies N/V, F,C, palpitations, leg pain/swelling, cough, wheezing, CP, urinary complaints, abdominal pain, hematuiria, BPR, diarrhea, constipation, lightheadedness, weakness, sensory changes. PMHx: as noted above ROS: as noted SHx: Denies IVDA, tobacco use. Allergies: NKDA Past History - Past Medical History Allergies/Adverse Reactions: Allergies Allergy/AdvReac Type Severity Reaction Status Date / Time No Known Allergies Allergy Verified 09/12/18 01:51 Home Medications: Ambulatory Orders NK [No Known Home Medication] 09/12/18 Asthma: No Cancer: No Cardiac Disorders: No COPD: No Diabetes: No HTN: No Seizures: No Thyroid Disease: No - Immunization History Immunization Up to Date: Yes - Suicide/Smoking/Psychosocial Hx Smoking History: Never smoked Have you smoked in the past 12 months: No Hx Alcohol Use: No Drug/Substance Use Hx: No Substance Use Type: None Hx Substance Use Treatment: No Review of Systems - Review of Systems Comments:: 09/12/18 01:57 GENERAL/CONSTITUTIONAL: No fever or chills. No weakness. HEAD, EYES, EARS, NOSE AND THROAT: No change in vision. No ear pain or discharge. No sore throat. CARDIOVASCULAR: + SOB. No chest pain. RESPIRATORY: No cough, wheezing, or hemoptysis. GASTROINTESTINAL: No nausea, vomiting, diarrhea or constipation. GENITOURINARY: No dysuria, frequency, or change in urination. MUSCULOSKELETAL: No joint or muscle swelling or pain. No neck or back pain. SKIN: Widespread rash NEUROLOGIC: + Lightheadedness. No headache, vertigo, loss of consciousness, or change in strength/sensation. ENDOCRINE: No increased thirst. No abnormal weight change HEMATOLOGIC/LYMPHATIC: No anemia, easy bleeding, or history of blood clots. ALLERGIC/IMMUNOLOGIC: No hives or skin allergy. *Physical Exam - Physical Exam Comments: 09/12/18 01:58 GENERAL: Awake, alert, and fully oriented, in no acute distress HEAD: No signs of trauma, normocephalic, atraumatic EYES: PERRLA, EOMI, sclera anicteric, conjunctiva clear ENT: Auricles normal inspection, hearing grossly normal, nares patent, oropharynx clear without exudates. Moist mucosa NECK: Absent stridor. Normal ROM, supple, no lymphadenopathy, JVD, or masses LUNGS: No distress, speaks full sentences, clear to auscultation bilaterally HEART: Regular rate and rhythm, normal S1 and S2, no murmurs, rubs or gallops, peripheral pulses normal and equal bilaterally. BREAST: BL breast engorgement, and firmness, with active lactating breast expressed from nipples. Absent retraction, erythema, warmth. + L sided breast ttp. Chaperoned by Ileana NORTON. ABDOMEN: Soft, nontender, normoactive bowel sounds. No guarding, no rebound. No masses EXTREMITIES : Normal inspection, Normal range of motion, no edema. No clubbing or cyanosis. NEUROLOGICAL: Cranial nerves II through XII grossly intact. Normal speech, normal gait, no focal sensorimotor deficits. SKIN: Widespread urticarial skin lesions involving, face, eyelids, upper exts. trunk, abdomen/bacl/neck. Warm, Dry, normal turgor. 09/12/18 04:37 Medical Decision Making - Medical Decision Making 09/12/18 01:57 33 yo F with no significant pmh who p/w widespread rash, lightheadedness, and SOB. BP 78/52, HR 79, AF, 100% O2 RA. A&Ox3. + Widespread urticaria lesions, involving face, ext, trunk. Neg mucosal edema, wheezing/cough, palatal edema, drooling, muffled voice/hoarseness, uvula deviation, stridor, abdominal pain. Likely acute allergic reaction with possible anaphylaxis vs. vasovagal reaction. No evidence of resp/airway compromise. Ed Course: Diphenhydramine 25 mg, Methylprednisilone 125 mg, Famotidine 20 mg, NS 2 L 09/12/18 02:03 BP improved 107/57 09/12/18 02:05 EpiPen and Prednisone sent to pharmacy Patient advised to f/u with precipitate washer BP improved 09/12/18 05:12 BP improved 112/77 stable for d/c with return precautions. *DC/Admit/Observation/Transfer Diagnosis at time of Disposition: Allergic reaction Qualifiers: Encounter type: initial encounter Qualified Code(s): T78.40XA - Allergy, unspecified, initial encounter - Discharge Dispostion Disposition: HOME Condition at time of disposition: Stable Decision to Admit order: No - Referrals - Patient Instructions Printed Discharge Instructions: DI for General Allergic Reactions Additional Instructions: Please return to the emergency department with any new or worsening symptoms or concerns. Please follow up with your primary care physician within 72 hours. Please hand picker EpiPen from pharmacy and use as directed. Please take Prednisone daily for 5 days. Please follow up with precipitate washer within one week. Return to ED with any difficulty with breathing, oral mucosal or tongue swelling, or worsening symptoms. - Post Discharge Activity - Attestations Physician Attestion: 09/12/18 02:04 I attest to the information provided in this note.
[2018-09-12] MEDS ORDERED: ONDANSETRON 4 MG/2 ML VIAL IVPB ONE (02:35)
[2018-09-12 03:20] VITALS: PULSE 80
--- NOTE | 2018-09-12 04:45 | PDOC ---
Attending Attestation - Resident Resident Name: RanjeetRenéSolomon - ED Attending Attestation I have performed the following: I have examined & evaluated the patient, The case was reviewed & discussed with the resident, I agree w/resident's findings & plan, Exceptions are as noted - HPI HPI: 09/12/18 06:33 Reviewed Residents HPI - Physicial Exam PE: 09/12/18 06:34 Reviewed Residents PE - Medical Decision Making 09/12/18 06:34 33 years old currently breast-feeding presents to the ED with diffuse urticarial ALLERGIC reaction some mild throat discomfort but satting 100% no stridor no wheezing Secondary to ALLERGIC reaction patient initially with low blood pressure feeling symptomatically dizzy and lightheaded given only rash on examination I believe this hypotension to be related to vagal response to discomfort from ALLERGIC reaction and not secondary to an anaphylactic reaction IV fluids ordered Benadryl ordered Pepcid ordered steroids ordered We'll hydrate observe and reassess Reevaluation status post lying down with IV fluids patient's blood pressure has normalized she feels much better Patient observed in the emergency department for 3 hours with no progressive worsening symptoms and resolution of rash She will be discharged on short course of steroids with ALLERGY follow-up as well as with an EpiPen to take home Findings, the need for follow-up and strict return instructions discussed with patient.
[2018-09-12 05:00] VITALS: BP 116/66
== END 2018-09-12 05:12 | disposition home or self-care (01) ==
LOC: JER 01:21
PROC: 3E033GC Introduction of Other Therapeutic Substance into Peripheral Vein, Percutaneous Approach (ICD-10-PCS; principal; 2018-09-12)
PROC: 3E0333Z Introduction of Anti-inflammatory into Peripheral Vein, Percutaneous Approach (ICD-10-PCS; 2018-09-12)
PROC: 3E033GC Introduction of Other Therapeutic Substance into Peripheral Vein, Percutaneous Approach (ICD-10-PCS; 2018-09-12)
DX: T78.40XA Allergy, unspecified, initial encounter (principal); L50.0 Allergic urticaria
CPT/HCPCS: 99282-25

== ENCOUNTER 2021-07-20 08:03 | Inpatient (IN) | payer OTHER ==
[2021-07-20 08:59] VITALS: BMI 36.4
[2021-07-20] MEDS ORDERED: AMPICILLIN SODIUM 2 GM VIAL ONE (09:03)
[2021-07-20] MEDS ORDERED: DEXTROSE 5%-LACTATED RINGERS 1,000 ML IV SCH (09:15)
[2021-07-20] MEDS ORDERED: AMPICILLIN - 2 GM in SODIUM CHLORIDE 100 ML IVPB ONE (09:17)
[2021-07-20] MEDS ORDERED: OXYTOCIN 30 UNITS in 0.9% NS 30 UNIT/500 ML INFUS.BAG IVPB ONE (09:26)
[2021-07-20] MEDS ORDERED: OXYTOCIN 30 UNITS in 0.9% NS 30 UNIT/500 ML INFUS.BAG IVPB SCH (09:30)
[2021-07-20] MEDS ORDERED: FENTANYL/BUPIVACAINE/NS/PF - PCEA - 50 ML DISP.SYRIN EP ONE ×2 (12:52→15:41)
[2021-07-20] MEDS ORDERED: AMPICILLIN SODIUM 1 GM VIAL ONE ×2 (13:00→17:18)
[2021-07-20] MEDS: AMPICILLIN - 1 GM in SODIUM CHLORIDE 100 ML IVPB SCH ×3 (13:05→23:51)
[2021-07-20] MEDS ORDERED: morphine SULFATE/PF 1 MG/2 ML (2cc Syringe - QUVA) SPIN ONE (14:01)
[2021-07-20] MEDS ORDERED: ONDANSETRON 4 MG/2 ML VIAL IVPUSH PRN ×2 (14:01)
[2021-07-20] MEDS ORDERED: ACETAMINOPHEN 1000 MG/100 ML VIAL IVPB ONE (14:02)
[2021-07-20] MEDS ORDERED: NALOXONE HCL 0.4 MG/ML VIAL IVPUSH PRN (14:06)
[2021-07-20] MEDS ORDERED: FENTANYL/BUPIVACAINE/NS/PF - PCEA - 50 ML DISP.SYRIN EP SCH (14:15)
[2021-07-20] MEDS ORDERED: BUPIVACAINE HCL/PF 0.25% (2.5MG/ML) 10 ML VIAL ONE (15:13)
[2021-07-20] MEDS ORDERED: OXYTOCIN 20 UNITS in 0.9% NS 20 UNIT/1,000 ML INFUS.BAG IV ONE (17:22)
[2021-07-20] MEDS ORDERED: PCA PUMP NR ONE (19:32)
[2021-07-20] MEDS ORDERED: WITCH HAZEL 50% (TUCKS) 40 PAD/JAR PAD TP PRN (20:04)
[2021-07-20] MEDS ORDERED: BENZOCAINE 28 GM HEMORRHOIDAL OINTMENT TP PRN (20:04)
[2021-07-20] MEDS ORDERED: ACETAMINOPHEN 325 MG TABLET (FP) PO PRN (20:04)
[2021-07-20] MEDS ORDERED: BISACODYL 10 MG SUPP.RECT RC PRN (20:04)
[2021-07-20] MEDS ORDERED: BENZOCAINE 20% 57 GM BOTTLE TP PRN (20:04)
[2021-07-20] MEDS ORDERED: METHYLERGONOVINE MALEATE 0.2 MG/1 ML AMP IM PRN (20:04)
[2021-07-20] MEDS ORDERED: OXYTOCIN 20 UNITS in 0.9% NS 20 UNIT/1,000 ML INFUS.BAG IV SCH (20:15)
[2021-07-21] MEDS: IBUPROFEN 600 MG TABLET (FP) PO PRN ×4 (00:27→22:35)
[2021-07-21 07:28] LABS: BASO % 0.5 % (0-2.0); EOS % 2.3 % (0-4.5); HEMATOCRIT 31.7 % (32.4-45.2); HEMOGLOBIN 10.8 GM/dL (10.7-15.3); LYMPH % 18.5 % (8-40); MCH 30.2 pg (25.7-33.7); MEAN PLT VOLUME 9.1 fl (7.5-11.1); MONO % 7.9 % (3.8-10.2); NEUT % 70.8 % (42.8-82.8); PLATELET COUNT 233 10^3/uL (134-434); RBC 3.57 M/mm3 (3.60-5.2); RDW 14.5 % (11.6-15.6); WHITE BLOOD COUNT 10.7 K/mm3 (4.0-10.0)
[2021-07-21] MEDS: PRENATAL VITAMINS W/ FOLIC ACID TABLET (FP) PO SCH (10:26)
[2021-07-21] MEDS ORDERED: SENNOSIDES/DOCUSATE COMBO (SENNA PLUS) TABLET (UD) PO PRN (22:00)
[2021-07-22] MEDS: IBUPROFEN 600 MG TABLET (FP) PO PRN (07:51)
[2021-07-22 08:56] VITALS: BP 118/70; PULSE 75; TEMP 98.5
[2021-07-22] MEDS: PRENATAL VITAMINS W/ FOLIC ACID TABLET (FP) PO SCH (09:56)
== END 2021-07-22 12:15 | disposition home or self-care (01) | DRG 807 ==
LOC: JLDR 08:03 → J3W 22:47
PROVIDERS: ADMIT Obstetrics & Gynecology; ATTEND Obstetrics & Gynecology
PROC: 10E0XZZ Delivery of Products of Conception, External Approach (ICD-10-PCS; principal; 2021-07-20)
PROC: 0KQM0ZZ Repair Perineum Muscle, Open Approach (ICD-10-PCS; 2021-07-20)
DX: O99.824 Streptococcus B carrier state complicating childbirth (principal); Z37.0 Single live birth; O70.1 Second degree perineal laceration during delivery; Z3A.39 39 weeks gestation of pregnancy
CPT/HCPCS: 36415; 59409; 85025